=== PATIENT | female | born 1940 | race Caucasian/White ===

== ENCOUNTER 2016-09-08 12:09 | Inpatient (IN) | payer MEDICARE, BC ==
[2016-09-06 17:49] LABS: BASOPHILS 0.5 %; BASOPHILS ABSOLUTE 0.04 10/3/uL (0.0-0.16); EOSINOPHILS 3.8 %; EOSINOPHILS ABSOLUTE 0.34 10/3/uL (0.0-0.53); HEMATOCRIT 38.2 % (36.0-48.0); HEMOGLOBIN 12.6 g/dL (12.0-16.0); IMMATURE GRANULOCYTES 0.1 %; IMMATURE GRANULOCYTES ABSOLUTE 0.01 10/3/uL (0.0-0.11); LYMPHOCYTES 39.2 %; LYMPHOCYTES ABSOLUTE 3.47 10/3/uL (0.67-4.30); MANUAL DIFF NO %; MEAN CORPUSCULAR HEMOGLOB 29.8 pg (26.0-34.0); MEAN CORPUSCULAR VOLUME 90.3 fL (80-100); MEAN PLATELET VOLUME 9.8 fL (9.2-13.0); MONOCYTES 7.9 %; NEUTROPHILS 48.5 %; NEUTROPHILS ABSOLUTE 4.29 10/3/uL (2.02-8.40); PLATELET COUNT 349 10/3/uL (150-400); RBC DISTRIBUTION WIDTH 13.4 % (12.0-16.0); RED CELL COUNT 4.23 10/6/uL (4.0-5.6); WHITE BLOOD CELLS 8.9 10/3/uL (4.5-10.5)
[2016-09-06 17:56] LABS: INTERNATIONAL NORMAL RATI 1.1 UNITS (-); PARTIAL THROMBO TIME 26.1 SEC (22.5-37.2); PROTIME (NOT ORD) 13.7 SEC (12.0-14.5)
[2016-09-06 18:05] LABS: CALCIUM, SERUM 9.2 MG/DL (8.5-10.4); CHLORIDE, SERUM 104 MMOL/L (96-112); CO2 (CARBON DIOXIDE) 23 MMOL/L (24-34); CREATININE 1.04 MG/DL (0.55-1.02); GFR AFRICAN AMERICAN 61 ML/MIN (>=60); GFR NON AFRICAN AMERICAN 53 ML/MIN (>=60); POTASSIUM, SERUM 4.3 MMOL/L (3.5-5.3); SODIUM, SERUM 140 MMOL/L (135-148)
[2016-09-06 18:08] LABS: BUN (BLOOD UREA NITROGEN) 20 MG/DL (6-23); GLUCOSE, SERUM 160 MG/DL (60-99)
[2016-09-06 19:16] LABS: ASCORBIC ACID (UR NOT ORDER) NEG (NEG); BILIRUBIN, URINE NEGATIVE (NEG); KETONE, URINE NEGATIVE (NEG); LEUKOCYTE ESTERASE(NOT OR LARGE (NEG); WBC (NOT ORDERED) (RFLEX) > 182 (0-5)
--- NOTE | ~2016-09-08 | OP ---
Record Of Operation [facility] [address] [place]. 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 PROCEDURES: 1. Robot-assisted laparoscopic hysterectomy with bilateral salpingo-oophorectomy. CPT code 17637. 2. Intraoperative sentinel lymph node identification. CPT code 21735. 3. Laparoscopic lymph node biopsy, CPT code 58578. 4. Complete omentectomy. CPT code 63506. 5. Laparoscopic enterolysis. CPT code 46836. SURGEON: Jose Luis Rob MD. ANESTHESIA: General. ESTIMATED BLOOD LOSS: 75 mL. CRYSTALLOID: 2 L. URINE OUTPUT: 300 mL. DRAINS: Turner. 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 The patient had a previous ventral hernia repair with mesh, and there was extensive adhesive disease. Again, from the small bowel serosa to the anterior abdominal wall requiring extensive sharp enterolysis to free the intestinal adhesions from the anterior abdominal wall to facilitate the procedure. There was noted to be extensive amounts of bowel within the pelvis that made the retroperitoneal dissection somewhat difficult. She had one sentinel lymph node in the cardinal ligament on the right side, but no other sentinel lymph nodes were identified. The omentum was grossly normal, and all peritoneal surfaces were grossly normal. When the uterus was opened at the bedside, there appeared to be one focus of gross tumor within the endocervical stroma, and also a second focus of gross disease at the uterine fundus making it difficult to determine where the original origin of disease was as there was no direct communication between either these foci. PATHOLOGY: Uterus, uterine cervix, left cardinal ligament sentinel lymph node, bilateral adnexa, omentum, and pelvic washings. COMPLICATIONS: None. Record Of Operation [facility] [address] [place] [address] NAME: JUHI SAUNDERS : 42 STATUS : DIS IN PAT#: [id number] AGE: 75 ADM/REG DATE : 09/08/16 MR#: [id number] REPORT SERV DATE: 09/10/16 DICTATED BY: JOSE LUIS ROB DATE: 09/10/16 REPORT STATUS : Draft TRANSCRIBED BY: MODSonia DATE: 09/10/16 POSTOPERATIVE PLAN: Extubated to PACU. PROCEDURE IN DETAIL: After informed consent was signed, the patient was taken to the operating room, and placed in dorsal supine position, where adequate general anesthesia was administered. She was then placed in dorsal lithotomy position in Amor stirrups, and prepped and draped in usual fashion, and a Turner catheter was placed. Uterus was sounded, cervix was dilated, and the CELENA uterine manipulator was assembled and deployed. A left upper quadrant incision was made with a scalpel and carried down to the fascia which was incised, muscle was , posterior sheath was entered sharply, trocar was placed, and the abdomen was insufflated with CO2 gas. Additional robot trocars were placed in the supraumbilical region, bilateral upper quadrants and the right lateral flank, all under direct visualization. The patient was placed in steep Trendelenburg, and the robot was docked in the usual fashion. Pelvic washings were obtained. ICG had been previously injected into the cervix at 3 and 9 o'clock. Bilateral round ligaments were taken with bipolar cautery, and transected with monopolar scissors. The pelvic peritoneum was taken down lateral and parallel to the infundibulopelvic ligaments. The paravesical and pararectal spaces were developed and the only sentinel lymph node identified was in the left cardinal ligament near the external iliac lymph node chain. This was removed as a separate specimen, and taken out through the medical administrative assistant port. Next, the infundibulopelvic ligaments were isolated, taken with bipolar cautery, transected with monopolar scissors, and the broad ligament was taken down to the level of the cervix where the posterior colpotomy was made. The vesicouterine peritoneum was then incised, and the bladder was taken down well beneath the level of the anterior NIKHIL ring, and the anterior colpotomy was made. The uterine vessels were then taken out the cervix with bipolar cautery, transected with monopolar scissors, and the uterus, uterine cervix, and bilateral adnexa were then taken out through the use of vagina. Next, an infragastric omentectomy was performed using bipolar cautery, and monopolar scissors. The omentum was then taken out through the vagina. There was no gross lesions noted in the omentum. Next, the vagina was then closed with 0 180 V-Loc suture with a running stitch. The pelvis was irrigated, found to be hemostatic. All instruments were removed from the abdomen. The robot was undocked. The patient was taken out of steep Trendelenburg. Then CO2 gas was evacuated. The fascia from the left upper quadrant incision was closed with 0 Vicryl suture. The skin from all trocar sites was closed with 4-0 Monocryl and Dermabond. The patient tolerated the procedure well, was placed back in dorsal supine position, awakened, extubated, and sent to the PACU in stable condition. TB/KYLER Jose Luis Rob MD / [id number] CC: Record Of Operation [address] [address] NAME: JUHI SAUNDERS : 42 STATUS : DIS IN PAT#: [id number] AGE: 75 ADM/REG DATE : 09/08/16 MR#: [id number] REPORT SERV DATE: 09/10/16 DICTATED BY: JOSE LUIS ROB DATE: 09/10/16 REPORT STATUS : Draft TRANSCRIBED BY: KYLER DATE: 09/10/16 MD José Antonio Solano M.D.
[~2016-09-08 12:09] MED LIST: ALEVE220 MG PO; AMARYL4 PO; ASABAYER PO; CELEXA20 PO; DIOVAN HC2 PO; GLUCPH8 PO; LEXAPRO20 PO; NORV5 PO; ROLAIDS PO; ZOCOR20 PO
[2016-09-09 08:07] LABS: BASOPHILS 0.4 %; BASOPHILS ABSOLUTE 0.03 10/3/uL (0.0-0.16); EOSINOPHILS 0 %; IMMATURE GRANULOCYTES 0.1 %; IMMATURE GRANULOCYTES ABSOLUTE 0.01 10/3/uL (0.0-0.11); LYMPHOCYTES 12.5 %; LYMPHOCYTES ABSOLUTE 0.94 10/3/uL (0.67-4.30); MEAN CORPUS HGB CONC 32.4 g/dL (32.0-36.0); MEAN CORPUSCULAR HEMOGLOB 30.2 pg (26.0-34.0); MEAN PLATELET VOLUME 10.3 fL (9.2-13.0); MONOCYTES 7.8 %; MONOCYTES ABSOLUTE 0.59 10/3/uL (0.21-1.20); NEUTROPHILS 79.2 %; NEUTROPHILS ABSOLUTE 5.98 10/3/uL (2.02-8.40); RBC DISTRIBUTION WIDTH 13.6 % (12.0-16.0); RED CELL COUNT 3.97 10/6/uL (4.0-5.6); WHITE BLOOD CELLS 7.6 10/3/uL (4.5-10.5)
[2016-09-09 08:09] LABS: MEAN CORPUSCULAR VOLUME 93.2 fL (80-100); PLATELET COUNT 178 10/3/uL (150-400)
[2016-09-09 08:24] LABS: CALCIUM, SERUM 8.5 MG/DL (8.5-10.4); CHLORIDE, SERUM 107 MMOL/L (96-112); CO2 (CARBON DIOXIDE) 20 MMOL/L (24-34); CREATININE 1.44 MG/DL (0.55-1.02); GFR AFRICAN AMERICAN 41 ML/MIN (>=60); GFR NON AFRICAN AMERICAN 36 ML/MIN (>=60); POTASSIUM, SERUM 4.9 MMOL/L (3.5-5.3); SODIUM, SERUM 137 MMOL/L (135-148)
[2016-09-09 08:26] LABS: BUN (BLOOD UREA NITROGEN) 15 MG/DL (6-23); GLUCOSE, SERUM 253 MG/DL (60-99)
[2016-09-09 08:28] LABS: MANUAL DIFF NO %
[2016-09-10] MEDS ORDERED: COMP10B PO (08:27)
[2016-09-10] MEDS ORDERED: PCET PO (08:27)
[2016-09-10] MEDS ORDERED: MYLICON 80 MG T80 MG PO (08:28)
[2016-09-10] MEDS ORDERED: BIST PO (08:29)
== END 2016-09-10 11:00 | disposition home or self-care (01) | DRG 741 ==
LOC: SDC 12:09 → 4EA 19:36
PROVIDERS: Obstetrics & Gynecology Gynecology
PROC: 0UTC4ZZ Resection of Cervix, Percutaneous Endoscopic Approach (ICD-10-PCS; 2016-09-08)
PROC: 0UT24ZZ Resection of Bilateral Ovaries, Percutaneous Endoscopic Approach (ICD-10-PCS; 2016-09-08)
PROC: 0UT74ZZ Resection of Bilateral Fallopian Tubes, Percutaneous Endoscopic Approach (ICD-10-PCS; 2016-09-08)
PROC: 0DNV4ZZ Release Mesentery, Percutaneous Endoscopic Approach (ICD-10-PCS; 2016-09-08)
PROC: 0DBT4ZZ (ICD-10-PCS; 2016-09-08)
PROC: 8E0W4CZ Robotic Assisted Procedure of Trunk Region, Percutaneous Endoscopic Approach (ICD-10-PCS; 2016-09-08)
PROC: 0UT94ZZ Resection of Uterus, Percutaneous Endoscopic Approach (ICD-10-PCS; principal; 2016-09-08 13:30)
DX: C53.9 Malignant neoplasm of cervix uteri, unspecified (principal); E11.9 Type 2 diabetes mellitus without complications; I10 Essential (primary) hypertension; K21.9 Gastro-esophageal reflux disease without esophagitis
CPT/HCPCS: 36415; 71010; 71020; 80048; 81001; 82962; 85025; 85610; 85730; 86850; 86900; 86901; 87077; 87086; 87186; 88112; 88305; 88307; 88309; 88342; 93005; A9270-GY; C1751; C1758; C1769; J0690; J0694; J2250; J2370; J2550; J2710; J2795; J3010